=== PATIENT | female | born 1950 | race Caucasian/White ===

== ENCOUNTER 2017-11-22 08:38 | Inpatient (IN) | payer MEDICARE, MEDICAID ==
[2017-11-22] VITALS (12 sets, daily range): BP systolic 125–171; BP diastolic 62–72
[~2017-11-22] VITALS: Ht 167.6 cm; Wt 104.0 kg
[~2017-11-22 08:38] MED LIST: CLOP75TA15 PO; INSU100V12 SQ; LOSA25TA96 PO; MULT-1141 PO; POTA20PA40 PO; SIMV40TA4 PO
[2017-11-22] MEDS ORDERED: aspirin 81mg tab.chew PO ONE (08:50)
[2017-11-22] MEDS: nitroGLYCERIN 0.4mg SUBLingual tab SL PRN ×2 (08:55→09:23)
[2017-11-22 09:16] LABS: BASOPHILS % (AUTO) 0.7 % (0-1); EOSINOPHILS # (AUTO) 0.1 X10'3 (0-0.9); EOSINOPHILS % (AUTO) 1.7 % (0-6); HEMATOCRIT 39.8 % (35.0-45.0); HEMOGLOBIN 13.9 g/dl (12.0-16.0); LYMPHOCYTES # (AUTO) 1.2 X10'3 (1.1-4.8); LYMPHOCYTES % (AUTO) 21.6 % (21-51); MEAN CORPUSCULAR HEMOGLOBIN 32.8 PG (27.0-31.0); MEAN CORPUSCULAR VOLUME 93.8 FL (78-98); MEAN PLATELET VOLUME 7.6 FL (7.4-10.4); MONOCYTES # (AUTO) 0.3 X10'3 (0-0.9); MONOCYTES % (AUTO) 5.9 % (2-12); NEUTROPHILS # (AUTO) 3.8 X10'3 (1.8-7.7); NEUTROPHILS % (AUTO) 70.1 % (42-75); PLATELET COUNT 268 X10'3 (140-440); RED BLOOD COUNT 4.25 X10'6 (4.20-5.60); RED CELL DISTRIBUTION WIDTH 11.9 % (11.5-14.5); WHITE BLOOD COUNT 5.4 X10'3 (4.5-11.0)
[2017-11-22 09:30] LABS: PARTIAL THROMBOPLASTIN TIME 28 SECONDS (22-32); PROTHROMBIN TIME 10.2 SECONDS (9.0-12.0)
[2017-11-22 09:31] LABS: ALANINE AMINOTRANSFERASE 27 U/L (12-78); ALBUMIN 3.6 G/DL (3.4-5.0); ALBUMIN/GLOBULIN RATIO 1.1 (1.1-1.5); ALKALINE PHOSPHATASE 82 IU/L (46-116); ANION GAP 7 (8-16); ASPARTATE AMINO TRANSFERASE 19 U/L (10-37); BILIRUBIN,TOTAL 0.5 MG/DL (0.1-1.0); BLOOD UREA NITROGEN 17 MG/DL (7-18); BUN/CREATININE RATIO 21.3 (6.6-38.0); CALCIUM 8.5 MG/DL (8.5-10.1); CHLORIDE 104 MMOL/L (99-107); GLUCOSE 153 MG/DL (70-104); POTASSIUM 3.8 MMOL/L (3.5-5.1); SODIUM 141 MMOL/L (135-145); TOTAL CARBON DIOXIDE 30.2 MMOL/L (24-32); TOTAL PROTEIN 6.9 G/DL (6.4-8.2); eGFR 71 ML/MIN
[2017-11-22] MEDS ORDERED: GLIM1TAB46 PO (10:36)
[2017-11-22] MEDS ORDERED: mag hydrox/Alum hydrox/simeth 30ml oral suspension PO PRN (11:45)
[2017-11-22] MEDS ORDERED: HYDROcodone/acetaminophen 5mg/325mg tablet PO PRN (11:45)
[2017-11-22] MEDS ORDERED: morphine 2 MG/ML inj. syringe IV PRN ×2 (11:45)
[2017-11-22] MEDS ORDERED: magnesium hydroxide 30ml (MOM) UD suspension PO PRN (11:45)
[2017-11-22] MEDS ORDERED: magnesium Cl slow-release 64mg tablet PO PRN (11:45)
[2017-11-22] MEDS ORDERED: HYDROcodone/acetaminophen 10/325mg tab PO PRN (11:45)
[2017-11-22] MEDS ORDERED: magnesium 4gm in 100ml NS 100 ML IV PRN (11:45)
[2017-11-22] MEDS ORDERED: bisacodyl 10mg suppository rectal RC PRN (11:45)
[2017-11-22] MEDS ORDERED: ondansetron/PF 4mg/2ml inj IV PRN (11:45)
[2017-11-22] MEDS ORDERED: potassium Cl 20 mEq SR tablet PO PRN ×2 (11:45)
[2017-11-22] MEDS ORDERED: magnesium 1gm/100ml D5W IVPB 100 ML IV PRN (11:45)
[2017-11-22] MEDS ORDERED: potassium Cl 40MEQ/NS 500ml 500 ML IV PRN ×2 (11:45)
[2017-11-22] MEDS ORDERED: acetaminophen 325mg tablet PO PRN (11:45)
[2017-11-22] MEDS ORDERED: insulin Lispro (HumaLOG) vial - multi-dose SQ SCH (11:50)
[2017-11-22] MEDS ORDERED: dextrose ORAL solution 15 GM/59 ML bottle PO PRN ×2 (11:50)
[2017-11-22] MEDS ORDERED: nitroGLYCERIN 0.4mg SUBLingual tab SL PRN ×2 (11:50)
[2017-11-22] MEDS ORDERED: metoprolol tartrate 1mg/ml inj IV PRN (11:50)
[2017-11-22] MEDS ORDERED: MESSAGE TO PHARMACY PO ONE (11:50)
[2017-11-22] MEDS ORDERED: glucagon, human recombinant 1mg kit SUBCUT PRN (11:50)
[2017-11-22] MEDS ORDERED: CAFFEINE CITRATE 60 MG/3 ML injection vial IV PRN (11:50)
[2017-11-22] MEDS ORDERED: regadenoson 0.4mg/5ml syringe IV PRN (11:50)
[2017-11-22] MEDS ORDERED: dextrose 50%-water 50ml dispensing syringe IV PRN ×2 (11:50)
[2017-11-22 12:42] LABS: HEMOGLOBIN A1C 7.8 % (4.5-6.2)
[2017-11-22] MEDS ORDERED: CAFFEINE CITRATE 60 MG/3 ML injection vial IV ONE (13:28)
[2017-11-22] MEDS ORDERED: regadenoson 0.4mg/5ml syringe IV ONE (13:28)
[2017-11-22] MEDS: potassium Cl 20mEq in NS 1,000 ML IV SCH (15:09)
[2017-11-22] MEDS: heparin, porcine 5000 units/ml vial SQ SCH (20:00)
[2017-11-22] MEDS: docusate sod 100mg capsule PO SCH (20:00)
[2017-11-22] MEDS ORDERED: atorvastatin 20mg tablet PO SCH (21:00)
[2017-11-23] VITALS (9 sets, daily range): BP systolic 106–146; BP diastolic 56–72
[2017-11-23] MEDS: potassium Cl 20mEq in NS 1,000 ML IV SCH (02:03)
[2017-11-23 05:42] LABS: ALANINE AMINOTRANSFERASE 23 U/L (12-78); ALBUMIN 3.2 G/DL (3.4-5.0); ALBUMIN/GLOBULIN RATIO 1.1 (1.1-1.5); ALKALINE PHOSPHATASE 71 IU/L (46-116); ANION GAP 7 (8-16); ASPARTATE AMINO TRANSFERASE 18 U/L (10-37); BILIRUBIN,TOTAL 0.5 MG/DL (0.1-1.0); BLOOD UREA NITROGEN 13 MG/DL (7-18); BUN/CREATININE RATIO 16.7 (6.6-38.0); CALCIUM 8.6 MG/DL (8.5-10.1); CHLORIDE 108 MMOL/L (99-107); CHOL/HDL RATIO 2.7 (0.00-4.99); CHOLESTEROL 111 MG/DL (0-200); CREATININE 0.78 MG/DL (0.40-0.90); GLUCOSE 128 MG/DL (70-104); HDL CHOLESTEROL 41 MG/DL (35-60); LDL CHOLESTEROL 62 MG/DL (50-100); MAGNESIUM 1.9 MG/DL (1.5-2.4); POTASSIUM 3.8 MMOL/L (3.5-5.1); SODIUM 144 MMOL/L (135-145); TOTAL CARBON DIOXIDE 28.8 MMOL/L (24-32); TOTAL PROTEIN 6.1 G/DL (6.4-8.2); TRIGLYCERIDES 59 MG/DL (20-135); eGFR 73 ML/MIN
[2017-11-23 05:53] LABS: BASOPHILS % (AUTO) 0.4 % (0-1); EOSINOPHILS # (AUTO) 0.1 X10'3 (0-0.9); EOSINOPHILS % (AUTO) 2.2 % (0-6); HEMATOCRIT 36.3 % (35.0-45.0); HEMOGLOBIN 12.9 g/dl (12.0-16.0); LYMPHOCYTES # (AUTO) 1.3 X10'3 (1.1-4.8); MEAN CORPUSCULAR HEMOGLOBIN 33.5 PG (27.0-31.0); MEAN CORPUSCULAR HGB CONC 35.6 % (33.0-36.5); MEAN PLATELET VOLUME 7.9 FL (7.4-10.4); MONOCYTES # (AUTO) 0.4 X10'3 (0-0.9); MONOCYTES % (AUTO) 6.6 % (2-12); NEUTROPHILS # (AUTO) 3.7 X10'3 (1.8-7.7); NEUTROPHILS % (AUTO) 66.8 % (42-75); PLATELET COUNT 239 X10'3 (140-440); RED BLOOD COUNT 3.86 X10'6 (4.20-5.60); RED CELL DISTRIBUTION WIDTH 11.6 % (11.5-14.5); WHITE BLOOD COUNT 5.5 X10'3 (4.5-11.0)
[2017-11-23] MEDS: docusate sod 100mg capsule PO SCH (06:57)
[2017-11-23] MEDS: heparin, porcine 5000 units/ml vial SQ SCH (06:59)
[2017-11-23] MEDS ORDERED: LIDOcaine 1% (10mg/ml)w/preservative injection 20ml MDV ONE (07:30)
[2017-11-23] MEDS ORDERED: midazolam 2 mg/2 ml injection ONE (07:30)
[2017-11-23] MEDS ORDERED: fentaNYL/PF 50MCG/1 ML 2ML syringe ONE (07:30)
[2017-11-23] MEDS ORDERED: iohexol 350MG/ML 100ml bottle IV ONE (07:30)
[2017-11-23] MEDS ORDERED: losartan 25mg tablet PO SCH (08:00)
[2017-11-23] MEDS ORDERED: multivitamins, therapeutics tablet PO SCH (08:00)
[2017-11-23] MEDS ORDERED: potassium Cl 20 mEq SR tablet PO SCH (08:00)
[2017-11-23] MEDS ORDERED: clopidogrel 75mg tablet PO SCH (08:00)
[2017-11-23] MEDS ORDERED: K and/or MAG REPLACEMENT MC SCH (08:00)
[2017-11-23] MEDS ORDERED: aspirin 81mg tablet.DR PO SCH (08:00)
[2017-11-23] MEDS ORDERED: ondansetron/PF 4mg/2ml inj IV PRN (09:20)
[2017-11-23] MEDS ORDERED: OXAZEpam 15mg capsule PO PRN (09:20)
[2017-11-23] MEDS ORDERED: proCHLORperazine 10 MG/2 ml inj IV PRN (09:20)
[2017-11-23] MEDS ORDERED: normal saline 1000ml 400 ML IV SCH ×2 (09:25→12:35)
[2017-11-23] MEDS ORDERED: NITR0.4T51 SL (11:45)
[2017-11-23] MEDS ORDERED: LIDO700A47 TP (11:48)
[2017-11-23] MEDS ORDERED: LIDOcaine 5% patch TP SCH (11:50)
== END 2017-11-23 13:05 | disposition home or self-care (01) | DRG 287 ==
LOC: ER 08:38 → ED HOLD 11:45 → PCU 3S 12:32
PROVIDERS: ADMIT Internal Medicine; ATTEND Internal Medicine
PROC: 4A02XM4 Measurement of Cardiac Total Activity, External Approach (ICD-10-PCS; 2017-11-22)
PROC: 3E033HZ Introduction of Radioactive Substance into Peripheral Vein, Percutaneous Approach (ICD-10-PCS; 2017-11-22)
PROC: 3E02340 Introduction of Influenza Vaccine into Muscle, Percutaneous Approach (ICD-10-PCS; 2017-11-22)
PROC: 4A023N7 Measurement of Cardiac Sampling and Pressure, Left Heart, Percutaneous Approach (ICD-10-PCS; principal; 2017-11-23)
PROC: B2111ZZ Fluoroscopy of Multiple Coronary Arteries using Low Osmolar Contrast (ICD-10-PCS; 2017-11-23)
PROC: B2151ZZ Fluoroscopy of Left Heart using Low Osmolar Contrast (ICD-10-PCS; 2017-11-23)
DX: I25.10 Atherosclerotic heart disease of native coronary artery without angina pectoris (principal); T82.855A Stenosis of coronary artery stent, initial encounter; I50.32 Chronic diastolic (congestive) heart failure; I69.351 Hemiplegia and hemiparesis following cerebral infarction affecting right dominant side; M94.0 Chondrocostal junction syndrome [Tietze]; E11.42 Type 2 diabetes mellitus with diabetic polyneuropathy; I11.0 Hypertensive heart disease with heart failure; E78.5 Hyperlipidemia, unspecified; I25.2 Old myocardial infarction; Z90.710 Acquired absence of both cervix and uterus; Z95.5 Presence of coronary angioplasty implant and graft; Z88.8 Allergy status to other drugs, medicaments and biological substances; Z79.899 Other long term (current) drug therapy; Z23 Encounter for immunization
CPT/HCPCS: 36415; 71045; 71046; 78452; 80053; 80061; 82948; 83036; 83735; 84484; 85025; 85610; 85730; 87070; 93005; 93017; 93306; 93458; 99152; 99285; A4620; A6257; A9500; C1769; J1644; J2001; J2250; J3010; J7030; Q9967

== ENCOUNTER 2024-09-21 13:44 | Emergency (ER) | payer MEDICARE, MEDICAID ==
[~2024-09-21] VITALS: Ht 170.2 cm; Wt 77.5 kg
[~2024-09-21 13:44] MED LIST changes: -CLOP75TA15 PO; +CLOP75TA34 PO; +GLIM2TAB6 PO; +LOSA-415 PO; -LOSA25TA96 PO; -MULT-1141 PO; -POTA20PA40 PO; +SIMV-45 PO; -SIMV40TA4 PO; +TRIA1TAB3 PO
[2024-09-21 13:48] VITALS: BP 143/65; PULSE 70; RESP 20; TEMP 97.3; O2SAT 99
[2024-09-21 14:45] LABS: MEAN PLATELET VOLUME 7.8 FL (7.4-10.4); RED CELL DISTRIBUTION WIDTH 12.5 % (11.5-14.5)
[2024-09-21 15:02] LABS: CREATININE 0.74 MG/DL (0.40-0.90); TOTAL CARBON DIOXIDE 25.9 MMOL/L (24-32); eCRCL 64 ML/MIN; eGFR 77 ML/MIN
[2024-09-23] MEDS ORDERED: APIX5TAB3 PO (01:17)
[2024-09-23] MEDS ORDERED: POTA-206 PO (01:17)
[2024-09-23] MEDS ORDERED: EMPA10TA PO (01:17)
[2024-09-23] MEDS ORDERED: FURO20TA4 PO (01:17)
[2024-09-23] MEDS ORDERED: ACYC-126 PO (01:17)
[2024-09-23] MEDS ORDERED: OXYB5TAB21 PO (01:17)
[2024-09-23] MEDS ORDERED: NOVLG SQ (01:17)
[2024-09-23] MEDS ORDERED: ATOR-2 PO (01:17)
[2024-09-23] MEDS ORDERED: INSU100I31 SQ (01:17)
[2024-09-23] MEDS ORDERED: LOP12.5T PO (01:19)
== END 2024-09-21 20:52 | disposition left against medical advice (07) ==
LOC: ER 13:45
DX: R10.9 Unspecified abdominal pain (principal); R11.0 Nausea; Z88.8 Allergy status to other drugs, medicaments and biological substances; Z53.21 Procedure and treatment not carried out due to patient leaving prior to being seen by health care provider
CPT/HCPCS: 36415; 80053; 83690; 85025

== ENCOUNTER 2024-11-30 17:27 | Emergency (ER) | payer MEDICARE, MEDICAID ==
[~2024-11-30] VITALS: Ht 170.2 cm; Wt 105.3 kg
[~2024-11-30 17:27] MED LIST changes: +ACYC-126 PO; +APIX5TAB3 PO; +ATOR-2 PO; -CLOP75TA34 PO; +EMPA10TA PO; +FURO-150 PO; +INSU100I31 SQ; -INSU100V12 SQ; +LOP12.5T PO; -LOSA-415 PO; +NOVLG SQ; +OXYB5TAB21 PO; +POTA-206 PO; -SIMV-45 PO; -TRIA1TAB3 PO
--- NOTE | 2024-11-30 18:43 | Physician Documentation ---
History of Present Illness ~ Chief Complaint: Mechanical Fall Stated Complaint: FALL Time Seen by MD: 18:33 Primary Medical Doctor: Dr. Daniel Mode of Arrival: EMS HPI Patient presents to the emergency room after sustaining a fall. She states she is walking backwards in her driveway in her back he will caught a small lip of an expansion joint causing her to fall backwards striking her posterior head. No loss of consciousness. She came in his she is on blood thinners and was told that if this happens she needs to have her head scanned. She is also endorsing neck pain. Tetanus within 5 Years?: Yes Medication Reconciliation Allergies: Coded Allergies: metformin (Verified Allergy, Unknown, 09/22/24) Scheduled Acyclovir (Acyclovir), 1 TAB PO BID, (Reported) Apixaban (Eliquis), 1 TAB PO BID, (Reported) Atorvastatin Calcium (Atorvastatin Calcium), 1 TAB PO HS, (Reported) Empagliflozin (Jardiance), 1 TAB PO DAILY, (Reported) Furosemide* (Lasix*), 0.5 TAB PO Q48H, (Reported) Glimepiride (Glimepiride), 1 TAB PO DAILY, (Reported) Insulin Aspart (Novolog), 4 UNITS SQ PRN, (Reported) Insulin Glargine,Hum.rec.anlog (Basaglar Kwikpen U-100), 10 UNITS SQ BID, (Reported) Metoprolol Tartrate (Lopressor tablet), 0.5 TAB PO DAILY, (Reported) Oxybutynin Chloride (Oxybutynin Chloride), 3 TAB PO HS, (Reported) Potassium Chloride (K-Dur), 1 TAB PO Q48H, (Reported) Past Medical History Past Medical History: CVA/TIA/Stroke, Hypertension, Myocardial Infarction, Diabetes Past Surgical History: angioplasty, hysterectomy, orthopedic surgeries Alcohol Use: None Drug Use: none Lives with: Alone Lives In: Home Occupation: other Review of Systems ROS All review of systems negative except as per HPI Physical Exam Vital Signs: Temperature: 98.4, Source: Temporal, Heart Rate: 83, Respiratory Rate: 13, BP: 140/91, Pulse Oximetry: 97, Weight: 105.300 Oxygen Flow Rate: 0 Physical Exam General: Patient is awake, alert, oriented x4 in no acute distress Head: Normocephalic and atraumatic. Eyes: Conjunctival normal. EOMI. PERRL. ENT: Mucous membranes moist. Neck: Supple, trachea is midline. Positive cervical midline tenderness Chest: Clear to auscultation bilaterally without rales, rhonchi, or wheezes. There is no accessory muscle use or retractions. Cardiac: RRR without murmurs, gallops, or rubs. Abd: Soft, nondistended, nontender, with normoactive bowel sounds. No guarding, rebound, or rigidity. Progress Results/Orders Results/Orders Orders - JEFF GRAFF MD Ct Cervical Spine (11/30/24 19:00) Ct Head (11/30/24 19:00) Completed Orders - JEFF GRAFF MD Ct Cervical Spine (11/30/24 19:00) Ct Head (11/30/24 19:00) Acetaminophen 325mg Tablet (Tylenol Tabl (11/30/24 18:45) Vital Signs 11/30/24 11/30/24 11/30/24 18:01 18:07 18:07 Temp 98.4 98.4 Pulse 76 83 Resp 13 13 B/P (MAP) 140/91 140/91 (107) Pulse Ox 97 97 O2 Flow Rate 0 0 Medical Decision Making Additional information obtaine: N/A Findings Patient presents to the emergency room status post fall as per HPI. Differentials include but are not limited to epidural bleed, subdural bleed, intraparenchymal bleed, cervical fracture therefore emergent imaging indicated which was reassuring. That has patient's fall was instigated he had not feel emergent labs or EKGs necessary. Differential Dx:Considerations: Include: Closed head injury, Cardiac injury, Fracture(s), Intraabdominal injury, Pneumothorax, Cerebral contusion, Pulmonary contusion, Spine injury, Tracheal injury, Urological injury, Vascular injury, A brasion(s), Contusion(s), Foreign body(s), Hematoma(s), Laceration(s), Encephalopathy, Other Departure Disposition: 01 HOME / SELF CARE / HOMELESS Impression: Primary Impression: Fall Condition: Stable Discharge Instructions: Fall Prevention in the Home, Adult, [id number] Referrals: NO PRIMARY CARE PROVIDER (PCP) Signature Scribe Signature: No scribe Attestation: The note accurately reflects work and decisions made by me.Jeff Graff MD 11/30/24 20:05 JEFF GRAFF MD Nov 30, 2024 18:43
--- NOTE | 2024-11-30 18:47 | RADIOLOGY REPORT ---
Indication: Shoulder Pain Technique: DI SHOULDER, COMPLETE (MIN 2 VWS)SHOULDERCM Comparison: None FINDINGS/IMPRESSION: No radiographic evidence for acute fracture or dislocation. Moderate right AC joint arthrosis. Aortic atherosclerotic disease. Coronary artery stent. Cardiomegaly, pulmonary vascular congestion .
--- NOTE | 2024-11-30 19:32 | RADIOLOGY REPORT ---
EXAM: CT CT CERVICAL SPINE HISTORY: fall on thinners w neck pain COMPARISON: CT CT HEAD on DOS: 11/30/24 CTDIvol 16.67 mGy, DLP 435.39 mGy*cm. TECHNIQUE: Multiple axial CT images of the spine were obtained using bone algorithm. Axial and coronal reformatting was done. Bone and soft tissue windows were reviewed. FINDINGS: No evidence of definite acute fracture, spinal dislocation, or significant appearing acute subluxation is seen. IMPRESSION: No acute cervical spine abnormality.
--- NOTE | 2024-11-30 19:39 | RADIOLOGY REPORT ---
COMPUTERIZED TOMOGRAPHY OF THE HEAD WITHOUT CONTRAST REASON FOR STUDY: fall on thinners w neck pain COMPARISON: None TECHNIQUE: Helical tomographic scans were obtained through the brain. 2-D coronal and sagittal reformatted images are provided. Radiation optimization: All CT scans at this facility use at least one of these dose optimization techniques: Automated exposure control mA and/or kV adjustment per patient size (includes targeted exams where dose is matched to clinical indication) or iterative reconstruction. RADIATION DOSE: CTDI: 58 mGy DLP: 1029 mGy-cm FINDINGS: No suspicious intracranial hyperdensity to suggest acute blood. There is an old infarct in the high medial right frontal lobe. There is an old lacunar infarct in the left lentiform nucleus. There is no mass effect nor midline shift. There is mild generalized volume loss with compensatory enlargement of the CSF spaces. There is no hydrocephalus. The suprasellar cistern is intact. There are scattered periventricular and deep white matter hypodensities that are most consistent with chronic microangiopathic changes. The calvarium is intact. The visualized mastoid air cells are clear. There is mild mucosal thickening in the left sphenoid sinus. IMPRESSION: No acute intracranial abnormality. Old infarct in the high medial right frontal lobe and in the left lentiform nucleus. Mild generalized volume loss with chronic small vessel ischemic change.
[2024-11-30 21:01] VITALS: BP 147/79; PULSE 73; RESP 15; TEMP 98.4; O2SAT 96
== END 2024-11-30 20:58 | disposition home or self-care (01) ==
LOC: ER 17:27
DX: M54.2 Cervicalgia (principal); E11.9 Type 2 diabetes mellitus without complications; I10 Essential (primary) hypertension; I25.2 Old myocardial infarction; Z86.73 Personal history of transient ischemic attack (TIA), and cerebral infarction without residual deficits; Z88.8 Allergy status to other drugs, medicaments and biological substances; Z90.710 Acquired absence of both cervix and uterus; W19.XXXA Unspecified fall, initial encounter; Y93.89 Activity, other specified; Y92.89 Other specified places as the place of occurrence of the external cause; Y99.8 Other external cause status
CPT/HCPCS: 70450; 72125; 73030; 99284

== ENCOUNTER 2024-12-20 08:41 | Day surgery (SDC) | payer MEDICARE, MEDICAID ==
[~2024-12-20] VITALS: Ht 170.2 cm; Wt 85.7 kg
[2024-12-20] MEDS ORDERED: fentaNYL/PF 50MCG/1 ML 2ML syringe IV ONE (09:05)
[2024-12-20] MEDS ORDERED: normal saline 1000ml 1,000 ML IV SCH (09:05)
[2024-12-20] MEDS ORDERED: MIDAZolam 1mg/ml 10ml vial IV ONE (09:05)
--- NOTE | 2024-12-20 09:06 | ELECTROCARDIOGRAPH REPORT ---
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 GEORGIE Judd Measurements Intervals [place] Rate: 79 P: 0 VA: 0 QRS: 42 QRSD: 92 T: 66 QT: 395 QTc: 453 Interpretive Statements Atrial fibrillation Ventricular premature complex Low voltage, extremity leads Electronically Signed On 12-20-2024 17:49:[address] GEORGIE Judd Please click the below link to view image of tracing.
[2024-12-20 09:42] LABS: MEAN PLATELET VOLUME 7.5 FL (7.4-10.4); RED CELL DISTRIBUTION WIDTH 14.4 % (11.5-14.5)
[2024-12-20 09:51] LABS: INR 1.1 INR
[2024-12-20] MEDS ORDERED: midazolam 1 mg/ML 2ml injection ONE (09:57)
[2024-12-20] MEDS ORDERED: NITR0.4T51 SL (09:58)
[2024-12-20] MEDS ORDERED: fentaNYL/PF 50MCG/1 ML 2ML syringe ONE (09:58)
[2024-12-20] MEDS ORDERED: MELA10TA2 PO (09:58)
[2024-12-20] MEDS ORDERED: CLOP75TA34 PO (09:58)
[2024-12-20] MEDS ORDERED: GLIM4TAB7 PO (09:58)
[2024-12-20] MEDS ORDERED: ATOR40TA72 PO (09:58)
[2024-12-20] MEDS ORDERED: AMIO200T76 PO (09:58)
[2024-12-20 10:00] LABS: CREATININE 0.83 MG/DL (0.40-0.90); TOTAL CARBON DIOXIDE 31.2 MMOL/L (24-32); eCRCL 57 ML/MIN; eGFR 67 ML/MIN
[2024-12-20 10:23] VITALS: BP 157/99; PULSE 87; RESP 16; TEMP 98.5; O2SAT 97
[2024-12-20 10:28] VITALS: BP 126/86; PULSE 93; RESP 10; O2SAT 96
[2024-12-20 10:31] VITALS: RESP 16; O2SAT 97
--- NOTE | 2024-12-20 10:40 | ELECTROCARDIOGRAPH REPORT ---
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 GEORGIE Judd Measurements Intervals [place] Rate: 84 P: 0 PA: 0 QRS: 40 QRSD: 99 T: 48 QT: 467 QTc: 553 Interpretive Statements Atrial flutter Low voltage, extremity leads RSR' in V1 or V2, probably normal variant ST elevation, consider inferior injury Prolonged QT interval Electronically Signed On 12-20-2024 17:49:[address] GEORGIE Judd Please click the below link to view image of tracing.
[2024-12-20 10:45] VITALS: BP 116/84; PULSE 88; RESP 11; O2SAT 95
--- NOTE | 2024-12-20 10:52 | CARDIOLOGY REPORT ---
DATE OF SERVICE: 12/20/2024 DICTATING PHYSICIAN: MARCO MARSHALL DO PROCEDURE: DC cardioversion. PREPROCEDURAL DIAGNOSIS: Atrial fibrillation. POSTPROCEDURAL DIAGNOSIS: Atrial fibrillation, cardioverted to sinus rhythm. DESCRIPTION OF PROCEDURE: The patient was sedated with fentanyl and Versed. She was then given one 200 joules synchronized shock resulting in reversion to sinus rhythm. COMPLICATIONS: There were no complications. PLAN: Ongoing medical therapy. FINAL DIAGNOSIS: Atrial fibrillation, cardioverted to sinus rhythm. MARCO MARSHALL DO TID: [id number] RECEIPT: [id number] KAREEN/SHANON
[2024-12-20 11:00] VITALS: BP 122/80; PULSE 83; RESP 11; O2SAT 93
[2024-12-20 11:15] VITALS: BP 119/77; PULSE 75; RESP 11; O2SAT 97
[2024-12-20] MEDS ORDERED: FLU VACC TS2025-26(6MOS UP)/PF (FLULAVAL) 45 MCG/0.5 ML SYRINGE IMVAC ONE (12:00)
== END 2024-12-20 11:30 | disposition home or self-care (01) ==
LOC: SSTAY O 08:41
PROVIDERS: ATTEND Internal Medicine Cardiovascular Disease
DX: I48.0 Paroxysmal atrial fibrillation (principal); I49.3 Ventricular premature depolarization; R94.31 Abnormal electrocardiogram [ECG] [EKG]; I10 Essential (primary) hypertension; E11.9 Type 2 diabetes mellitus without complications; E78.5 Hyperlipidemia, unspecified; I25.10 Atherosclerotic heart disease of native coronary artery without angina pectoris; I25.2 Old myocardial infarction; G47.30 Sleep apnea, unspecified; M19.90 Unspecified osteoarthritis, unspecified site; Z86.73 Personal history of transient ischemic attack (TIA), and cerebral infarction without residual deficits; Z79.01 Long term (current) use of anticoagulants; Z79.899 Other long term (current) drug therapy; Z90.710 Acquired absence of both cervix and uterus; Z95.5 Presence of coronary angioplasty implant and graft; Z90.49 Acquired absence of other specified parts of digestive tract; Z98.890 Other specified postprocedural states; Z88.8 Allergy status to other drugs, medicaments and biological substances; Z82.49 Family history of ischemic heart disease and other diseases of the circulatory system; Z82.5 Family history of asthma and other chronic lower respiratory diseases
CPT/HCPCS: 36415; 80048; 82948; 83735; 85025; 85610; 92960; 93005; J2250; J3010; J7030; 99152